=== PATIENT | male | born 1940 | race Caucasian/White ===

== ENCOUNTER 2016-11-12 12:25 | Inpatient (IN) | payer BC ==
[~2016-11-12] VITALS: Ht 175.3 cm; Wt 87.3 kg
[~2016-11-12 12:25] MED LIST: Ambien PO; Aspirin Chewable PO; Ativan PO; LAMICTAL100 MG PO; LEXAPRO20 MG PO; LYRICA25 MG PO; Levothroid,Synthroid PO; NORCO 5/3251 TABLET PO; NORVASC5 MG PO; PROTONIX40 MG PO; Remeron PO
[2016-11-12 13:01] LABS: HEMATOCRIT 45.5 % (38.0-50.0); MCH 30.8 PG (29.0-34.0); MCHC 32.7 G/DL (30.0-36.0); MCV 94.2 FL (86-99); MEAN PLAT.VOLUME 9.7 uM^3 (9.0-12.4); PLATELET COUNT 195 K/uL (156-360); RBC DIS.WIDTH-CV 12.4 % (11.8-14.6); RBC DIS.WIDTH-SD 43.2 % (39-53); RED BLOOD COUNT 4.83 M/uL (4.00-5.50); WHITE BLOOD COUNT 6.5 K/uL (4.1-10.2)
[2016-11-12 13:09] LABS: CHLORIDE 103 mEq/L (99-109); POTASSIUM 4.4 mEq/L (3.7-5.4); SODIUM 140 mEq/L (136-147)
[2016-11-12 13:11] LABS: GLUCOSE 124 mg/dL (70-99)
[2016-11-12 13:12] LABS: ANION GAP 9 MEQ/L (2-14)
[2016-11-12 13:13] LABS: TOTAL BILIRUBIN 0.5 mg/dL (0.0-1.0)
[2016-11-12 13:15] LABS: ALKALINE PHOSPHATASE 62 IU/L (3-129); GFR ESTIMATE (CALCULATED) > 59 mL/min/
[2016-11-12 13:16] LABS: UREA NITROGEN (BUN) 14 mg/dL (9-23)
[2016-11-12 13:29] LABS: BILIRUBIN NEGATIVE; BLOOD NEGATIVE; GLUCOSE (STRIP) NEGATIVE; KETONES NEGATIVE; LEUKOCYTES NEGATIVE; NITRITE NEGATIVE; PROTEIN (STRIP) 30; SPECIFIC GRAVITY 1.013 (1.000-1.030); UROBILINOGEN 0.2 MG/DL (0.2-1.0)
[2016-11-12 13:33] LABS: ADD MIUA? NO; COLOR YELLOW ((YELLOW)); UCUL ADDED? NO
[2016-11-12] MEDS ORDERED: LAMICTAL XR200 MG PO (18:06)
[2016-11-12 19:28] VITALS: BP 189/84
[2016-11-12 20:05] VITALS: BP 142/62
[2016-11-12] MEDS ORDERED: VALSARTAN80 MG PO (23:04)
[2016-11-12] MEDS ORDERED: LAMICTAL200 MG PO (23:24)
[2016-11-13 01:11] VITALS: BP 162/74
[2016-11-13 03:24] VITALS: BP 132/72; BP 159/73
[2016-11-13 08:00] VITALS: BP 129/66
[2016-11-13 08:16] LABS: HEMATOCRIT 42.7 % (38.0-50.0); MCHC 33.7 G/DL (30.0-36.0); MCV 94.9 FL (86-99); MEAN PLAT.VOLUME 10.2 uM^3 (9.0-12.4); PLATELET COUNT 195 K/uL (156-360); RBC DIS.WIDTH-CV 12.4 % (11.8-14.6); RBC DIS.WIDTH-SD 43.2 % (39-53); WHITE BLOOD COUNT 5.7 K/uL (4.1-10.2)
[2016-11-13 08:31] LABS: ANION GAP 9 MEQ/L (2-14); CHLORIDE 106 MEQ/L (99-109); GFR ESTIMATE (CALCULATED) > 59 mL/min/; GLUCOSE 120 mg/dL (70-99); POTASSIUM 4.4 MEQ/L (3.7-5.4); SAMPLE HEMOLYSIS CHECK 0; SAMPLE ICTERIC CHECK 0; SAMPLE LIPEMIA CHECK 0; SODIUM 141 MEQ/L (136-147); UREA NITROGEN (BUN) 11 mg/dL (9-23)
[2016-11-13] MEDS ORDERED: BAYER CHEWABLE81 MG PO (11:28)
[2016-11-13] MEDS ORDERED: ATIVAN0.5 MG PO (11:31)
[2016-11-13] MEDS ORDERED: REMERON15 M2 PO (11:33)
[2016-11-13] MEDS ORDERED: LEVO-T50 MCG PO (11:34)
[2016-11-13] MEDS ORDERED: AMBIEN10 MG PO (11:35)
[2016-11-13 15:33] VITALS: BP 141/67
[2016-11-13] MEDS ORDERED: ATIVAN1 MG PO (16:53)
[2016-11-14 00:12] VITALS: BP 132/50
[2016-11-14 07:26] VITALS: BP 128/69
== END 2016-11-14 11:21 | disposition home or self-care (01) | DRG 390 ==
LOC: EME 12:25 → 2EAST 16:00 → EDOF 16:00 → 2EAST 19:16
PROVIDERS: Surgery
DX: K56.60 Unspecified intestinal obstruction (principal); K59.00 Constipation, unspecified; E03.9 Hypothyroidism, unspecified; E78.5 Hyperlipidemia, unspecified; F32.9 Major depressive disorder, single episode, unspecified; F41.9 Anxiety disorder, unspecified; G43.909 Migraine, unspecified, not intractable, without status migrainosus; I10 Essential (primary) hypertension; K21.9 Gastro-esophageal reflux disease without esophagitis; K42.9 Umbilical hernia without obstruction or gangrene; K76.0 Fatty (change of) liver, not elsewhere classified; E66.9 Obesity, unspecified; Z68.28 Body mass index [BMI] 28.0-28.9, adult; Z88.1 Allergy status to other antibiotic agents
CPT/HCPCS: 74020; 74177; 80048; 80053; 81003; 85027; 94660; 99281; 99285; C9113; J2270; J2405; J3480; J7030